=== PATIENT | male | born 2000 | race Hispanic/Latino ===

== ENCOUNTER 2021-05-19 19:50 | Emergency (ER) | payer OTHER ==
[2021-05-19] MEDS ORDERED: ACETAMINOPHEN 500 MG TAB ONE (20:41)
--- NOTE | 2021-05-19 21:29 | EDPHYS ---
Physician Documentation [facility] Name: Anthony Corbin Age: 21 yrs Sex: Male : 2000 Arrival Date: 05/19/2021 Time: 19:56 Bed 9 Private MD: ED Physician Eliot Obregon HPI: 05/19 21:25 This 21 yrs old Male presents to ER via Ambulatory with complaints of Sore jmm Throat, Swollen Glands. 21:25 The patient presents with sore throat. jmm 21:25 Onset: The symptoms/episode began/occurred gradually, 1 day(s) ago. Modifying factors: jmm The symptoms are alleviated by nothing, the symptoms are aggravated by nothing. Associated signs and symptoms: Pertinent positives: fever, Pertinent negatives. Historical: - Allergies: 20:12 No Known Allergies; kg - Home Meds: 20:12 None [Active]; kg - PMHx: 20:12 None; kg - PSHx: 20:12 Adenoid excision; sinus sx; kg - Immunization history:: Adult Immunizations not up to date, Client reports having NOT received the Covid vaccine. - Social history:: Smoking status: Patient denies any tobacco usage or history of. Patient uses alcohol, occasionally. ROS: 21:25 Respiratory: Negative for shortness of breath, cough, wheezing, and pleuritic chest jmm pain. 21:25 Constitutional: Positive for fever. 21:25 Abdomen/GI: Positive for 21:25 All other systems are negative. Exam: 21:25 Constitutional: This is a well developed, well nourished patient who is awake, alert, jmm and in no acute distress. Head/Face: atraumatic. Eyes: EOMI, no conjunctival erythema appreciated 21:25 Neck: Trachea midline, Supple Chest/axilla: Normal chest wall appearance and motion. Cardiovascular: Regular rate and rhythm. No edema appreciated Respiratory: Normal respirations, no respiratory distress appreciated Abdomen/GI: Non distended, soft Back: Normal ROM Skin: General appearance color normal MS/ Extremity: Moves all extremities, no obvious deformities appreciated, no edema noted to the lower extremities Neuro: Awake and alert, normal gait Psych: Behavior is normal, Mood is normal, Patient is cooperative and pleasant 21:25 ENT: Posterior pharynx: Uvula: midline, erythema, that is moderate, exudate, that is moderate. Vital Signs: 20:10 BP 148 / 93; Pulse 124; Resp 20; Temp 103.1(O); Pulse Ox 97% on R/A; Weight 104.33 kg kg (R); Height 6 ft. 1 in. (185.42 cm); Pain 8/10; 21:45 BP 142 / 86; Pulse 113; Resp 18; Temp 99.8; Pulse Ox 96% on R/A; lh3 20:10 Body Mass Index 30.34 (104.33 kg, 185.42 cm) kg MDM: 20:29 Patient medically screened. [facility] 21:27 Data reviewed: vital signs, nurses notes. Counseling: I had a detailed discussion with dylan the patient and/or guardian regarding: the historical points, exam findings, and any diagnostic results supporting the discharge/admit diagnosis, lab results, radiology results, the need for outpatient follow up, to return to the emergency department if symptoms worsen or persist or if there are any questions or concerns that arise at home. ED course: Patient is alert nontoxic in appearance in the ED. No signs of respiratory distress. Patient will be put on oral antibiotics and otherwise given strict return precautions. Patient understood and agrees plan of care.. 05/19 20:13 Order name: Strep; Complete Time: 20:56 kg 05/19 20:54 Order name: Throat Culture EDMS Administered Medications: 20:15 Drug: Tylenol 1000 mg Route: PO; kg 21:52 Follow up: Response: No adverse reaction; Temperature is decreased lh3 21:40 Drug: Decadron (dexamethasone) 10 mg Route: IM; Site: right deltoid; 3 21:52 Follow up: Response: No adverse reaction 3 Disposition: 22:25 Co-signature as Attending Physician, Eliot Obregon MD I agree with the assessment and rn plan of care. Attestation: The patient's history, exam findings, diagnostics, and a summary of any interventions or procedures was reviewed in detail with Lars MAC. Disposition Summary: 05/19/21 21:28 Discharge Ordered Location: Home [facility] Condition: Stable [facility] Diagnosis - Acute pharyngitis, unspecified [facility] Followup: [facility] - With: Private Physician - When: 2 - 3 days - Reason: Recheck today's complaints, Continuance of care, Re-evaluation by your physician Discharge Instructions: - Discharge Summary Sheet [facility] - Pharyngitis [facility] Forms: - Medication Reconciliation Form [facility] - Thank You Letter [facility] - Antibiotic Education [facility] - Prescription Opioid Use [facility] Prescriptions: - Augmentin 875-125 mg Oral Tablet - take 1 tablet by ORAL route every 12 hours for 10 days; 20 tablet; Refills: 0, jmm Product Selection Permitted Signatures: Dispatcher [employer] EDLars Byrd PA PA [facility] Eliot Obregon MD MD rn Graham, Kristen, RN RN kg Cathryn Jackson RN RN 3 Corrections: (The following items were deleted from the chart) 20:13 20:12 PSHx: None; kg kg
--- NOTE | 2021-05-19 21:29 | ER ---
Nurse's Notes [facility] Name: Anthony Corbin Age: 21 yrs Sex: Male : 2000 Arrival Date: 05/19/2021 Time: 19:56 Bed 9 Private MD: Diagnosis: Acute pharyngitis, unspecified Presentation: 05/19 20:10 Chief complaint: Patient states: Sore throat, difficulty swallowing, fever starting kg yesterday . Coronavirus screen: Vaccine status: Patient reports being unvaccinated. fever, sore throat, Client presents with at least one sign or symptom that may indicate coronavirus-19. Standard/surgical mask placed on the client. Provider contacted for isolation considerations. Ebola Screen: Patient negative for fever greater than or equal to 101.5 degrees Fahrenheit, and additional compatible Ebola Virus Disease symptoms Patient denies exposure to infectious person. Patient denies travel to an Ebola-affected area in the 21 days before illness onset. Initial Sepsis Screen: Does the patient meet any 2 criteria? Temp <36.0*C (96.8*F)) or > 38.3*C (100.9*F). HR > 90 bpm. Yes Does the patient have a suspected source of infection? No. Patient's initial sepsis screen is negative. Risk Assessment: Do you want to hurt yourself or someone else? Patient reports no desire to harm self or others. Onset of symptoms was May 18, 2021. 20:10 Method Of Arrival: Ambulatory kg 20:10 Acuity: HELDER 4 kg Triage Assessment: 20:12 General: Appears in no apparent distress. Behavior is calm, cooperative, appropriate kg for age, quiet. Pain: Complains of pain in Throat. EENT: Reports pain in Throat when swallowing. Historical: - Allergies: 20:12 No Known Allergies; kg - Home Meds: 20:12 None [Active]; kg - PMHx: 20:12 None; kg - PSHx: 20:12 Adenoid excision; sinus sx; kg - Immunization history:: Adult Immunizations not up to date, Client reports having NOT received the Covid vaccine. - Social history:: Smoking status: Patient denies any tobacco usage or history of. Patient uses alcohol, occasionally. Screenin:25 Abuse screen: Denies threats or abuse. Nutritional screening: No deficits noted. 3 Tuberculosis screening: No symptoms or risk factors identified. Fall Risk None identified. Assessment: 20:25 Respiratory: Airway is patent Respiratory effort is even, unlabored, Breath sounds are lh3 clear bilaterally. EENT: Throat is reddened has enlarged tonsils. Vital Signs: 20:10 BP 148 / 93; Pulse 124; Resp 20; Temp 103.1(O); Pulse Ox 97% on R/A; Weight 104.33 kg kg (R); Height 6 ft. 1 in. (185.42 cm); Pain 8/10; 21:45 BP 142 / 86; Pulse 113; Resp 18; Temp 99.8; Pulse Ox 96% on R/A; lh3 20:10 Body Mass Index 30.34 (104.33 kg, 185.42 cm) kg ED Course: 19:56 Patient arrived in ED. 19:58 Lars Catalan PA is PHCP. [facility] 19:58 Eliot Obregon MD is Attending Physician. [facility] 20:12 Triage completed. kg 20:16 Cathryn Jackson, ESSENCE is Primary Nurse. 3 20:25 Strep Sent. 3 20:25 No provider procedures requiring assistance completed. lh3 20:25 Patient has correct armband on for positive identification. Bed in low position. Call [facility] light in reach. Side rails up X 1. Adult w/ patient. 21:45 Patient did not have IV access during this emergency room visit. 3 21:52 Arm band placed on right wrist. 3 Administered Medications: 20:15 Drug: Tylenol 1000 mg Route: PO; kg 21:52 Follow up: Response: No adverse reaction; Temperature is decreased 3 21:40 Drug: Decadron (dexamethasone) 10 mg Route: IM; Site: right deltoid; 3 21:52 Follow up: Response: No adverse reaction [facility] Outcome: 21:28 Discharge ordered by . enrrique 21:45 Discharged to home with family. 3 21:45 Condition: good 21:45 Discharge instructions given to patient, family, Instructed on discharge instructions, follow up and referral plans. medication usage, Demonstrated understanding of instructions, follow-up care, medications, Prescriptions given X 1. 21:55 Patient left the ED. [facility] Signatures: Lars Catalan PA PA jmm Graham, Kristen, RN RN kg Rachel Kelly Latisha, RN RN 3 Corrections: (The following items were deleted from the chart) 20:13 20:12 PSHx: None; kg kg
[2021-05-19] MEDS ORDERED: dexAMETHasone 4 MG/ML VIAL ONE (21:49)
[2021-05-19] MEDS ORDERED: dexAMETHasone 10 MG/ML VIAL ONE (21:59)
[2021-05-19 22:23] VITALS: BP 142/86; TEMP 99.8; O2SAT 96
== END 2021-05-19 21:55 | disposition home or self-care (01) ==
LOC: ER 19:50
DX: J02.9 Acute pharyngitis, unspecified (principal)
CPT/HCPCS: 87070; 87081; 96372; 99283; J1100 ×2

== ENCOUNTER 2021-11-24 17:32 | Emergency (ER) | payer OTHER ==
[2021-11-24] MEDS ORDERED: KETOROLAC 30 MG/ML INJ ONE (17:44)
--- NOTE | 2021-11-24 18:16 | RAD REPORT ---
EXAM DESCRIPTION: CT - Head Brain Wo Cont - 11/24/2021 6:07 pm CLINICAL HISTORY: PAIN Trauma, headache COMPARISON: Facial Bones W/ Mpr dated 11/24/2021 TECHNIQUE: All CT scans are performed using dose optimization technique as appropriate and may inclu de automated exposure control or mA/KV adjustment according to patient size. FINDINGS: No intracranial hemorrhage, hydrocephalus or extra-axial fluid collection.No areas of brai n edema or evidence of midline shift. Fluid is present in both maxillary antra as well as the left ethmoid air cells sphenoid sinus. The ca lvarium is intact. Nasal fracture noted, greater on the left. IMPRESSION: No acute intracranial abnormality. Nasal bone fracture is present, greater on the left.
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
[2021-11-24 20:22] VITALS: O2SAT 99
[2021-11-24 20:23] VITALS: BP 148/88; TEMP 98.7
== END 2021-11-25 19:33 | disposition home or self-care (01) ==
LOC: ER 17:32
DX: S02.2XXA Fracture of nasal bones, initial encounter for closed fracture (principal); Y04.2XXA Assault by strike against or bumped into by another person, initial encounter; Y93.9 Activity, unspecified
CPT/HCPCS: 70450; 70486; 76377; 96372; 99284